=== PATIENT | male | born 1965 | race Caucasian/White ===

== ENCOUNTER 2021-11-03 21:19 | Inpatient (IN) ==
[2021-11-03] MEDS ORDERED: Iopamidol - 370 500 ML MLS IVP ONE (22:01)
[2021-11-03 22:18] LABS: Basophils % 0.3 %; Eosinophils # 0.1 K/mcL (0.0-0.6); Eosinophils % 1.5 %; Hemoglobin 14.3 g/dL (12.9-16.9); Immature Granulocytes % 0.4 % (0-4); Lymphocytes # 1.1 K/mcL (0.6-4.6); Lymphocytes % 15.4 %; Mean Corpuscular HGB Conc 31.8 g/dL (31.6-35.5); Mean Corpuscular Hemoglobin 29.1 pg (28.0-33.3); Mean Corpuscular Volume 91.6 fL (83.0-100.0); Mean Platelet Volume 11.5 fL (9.4-12.4); Monocytes # 1.2 K/mcL (0.0-1.3); Monocytes % 15.8 %; Neutrophils # 4.9 K/mcL (1.6-8.9); Red Blood Count 4.91 M/mcL (4.19-5.50); Red Cell Distribution Width 16.9 % (11.5-14.5); Segmented Neutrophils % 66.6 %; White Blood Count 7.3 K/mcL (4.3-11.1)
[2021-11-03 22:23] LABS: Platelet Count 113 K/mcL (140-400)
[2021-11-03 22:35] LABS: BUN/Creatinine Ratio 14 (6-26); Blood Urea Nitrogen 12 mg/dL (6-20); Calcium 8.9 mg/dL (8.6-10.3); Carbon Dioxide 37 mEq/L (23-29); Chloride 98 mEq/L (98-107); Glucose 96 mg/dL (70-105); Osmolality,Calculated 292 (280-300); Potassium 3.7 mEq/L (3.5-5.1); Sodium 141 mEq/L (136-145); eGFR For African Americans > 60 (> 60); eGFR For Non-African Americans > 60 (> 60)
[2021-11-03 22:48] LABS: Troponin I <= 0.04 ng/mL (0-0.04)
[2021-11-03] MEDS ORDERED: cefTRIAXone 1,000 MG in Water for inj. (sterile) 10 ML IVP ONE (23:25)
[2021-11-03] MEDS ORDERED: Azithromycin 500 MG in 0.9 % Sodium Chloride 250 ML IVPB ONE (23:25)
[2021-11-03] MEDS ORDERED: *HR* Heparin 5,000 UNIT/ML VIAL IVP ONE (23:26)
[2021-11-03] MEDS ORDERED: *HR* Heparin 5,000 UNIT/ML VIAL IVP PRN ×2 (23:26)
[2021-11-03] MEDS ORDERED: Heparin 25,000UNIT/250ML 1/2NS 25,000 UNIT/250 ML IV.SOLN IVC SCH (23:30)
[2021-11-04] MEDS ORDERED: Ondansetron 4 MG/2 ML VIAL IVP PRN ×2 (00:45→01:35)
[2021-11-04] MEDS ORDERED: Naloxone 0.4 MG/ML INJ IVP PRN ×2 (00:45→01:35)
[2021-11-04] MEDS ORDERED: *HR* Heparin 5,000 UNIT/ML VIAL IVP PRN ×2 (01:35)
[2021-11-04] MEDS ORDERED: Heparin 25,000UNIT/250ML 1/2NS 25,000 UNIT/250 ML IV.SOLN IVC SCH (01:35)
[2021-11-04] MEDS: *HR* HYDROcodone/Acet 7.5/325 mg TABLET PO PRN ×3 (02:45→21:17)
[2021-11-04] MEDS: lisinopriL 5 MG TABLET PO SCH (07:40)
[2021-11-04] MEDS: DilTIAZem CD (24hr) 120 MG CAP.ER.24H PO SCH (08:40)
[2021-11-04] MEDS: Furosemide 40 MG TABLET PO SCH (08:40)
[2021-11-04] MEDS ORDERED: Perflutren Lipid Microsphere 1.3 ML in 0.9 % Sodium Chloride 8.7 ML IVP PRN (12:57)
[2021-11-04] MEDS: Apixaban 5 MG TABLET PO SCH ×2 (15:13→21:14)
[2021-11-04] MEDS: *HR* LORazepam 1 MG TABLET PO PRN (21:17)
[2021-11-05] MEDS: *HR* LORazepam 1 MG TABLET PO PRN (00:36)
[2021-11-05 10:15] LABS: Basophils % 0.3 %; Eosinophils # 0.1 K/mcL (0.0-0.6); Eosinophils % 0.8 %; Hematocrit 48.5 % (37.5-50.1); Hemoglobin 14.7 g/dL (12.9-16.9); Immature Granulocytes % 0.5 % (0-4); Lymphocytes % 12.7 %; Mean Corpuscular HGB Conc 30.3 g/dL (31.6-35.5); Mean Corpuscular Volume 95.7 fL (83.0-100.0); Mean Platelet Volume 10.2 fL (9.4-12.4); Monocytes # 1.1 K/mcL (0.0-1.3); Monocytes % 14.1 %; Neutrophils # 5.6 K/mcL (1.6-8.9); Platelet Count 109 K/mcL (140-400); Red Blood Count 5.07 M/mcL (4.19-5.50); Red Cell Distribution Width 16.3 % (11.5-14.5); Segmented Neutrophils % 71.6 %; White Blood Count 7.8 K/mcL (4.3-11.1)
[2021-11-05 11:49] LABS: Alanine Aminotransferase 17 Units/L (7-52); Albumin 3.6 g/dL (3.5-5.7); Albumin/Globulin Ratio 1.3 (1.1-2.2); Alkaline Phosphatase 78 Units/L (34-104); Aspartate Amino Transferase 12 Units/L (13-39); BUN/Creatinine Ratio 13 (6-26); Bilirubin,Total 0.4 mg/dL (0.3-1.0); Blood Urea Nitrogen 10 mg/dL (6-20); Calcium 9.3 mg/dL (8.6-10.3); Carbon Dioxide 39 mEq/L (23-29); Chloride 97 mEq/L (98-107); Globulin 2.8 g/dL (2.4-3.5); Glucose 133 mg/dL (70-105); Osmolality,Calculated 291 (280-300); Potassium 4.4 mEq/L (3.5-5.1); Sodium 140 mEq/L (136-145); Total Protein 6.4 g/dL (6.4-8.9); eGFR For African Americans > 60 (> 60); eGFR For Non-African Americans > 60 (> 60)
[2021-11-05 12:01] LABS: ABG Base Excess 7 mEq/L (-2 to 3); ABG HCO3 44 mEq/L (21-27); ABG Oxygen Saturation 88 % (95-98); ABG PCO2 133 mmHg (35-45); ABG PH 7.13 pH Units (7.32-7.45); ABG PO2 77 mmHg (85-104); ABG TCO2 48 mEq/L (20-26)
[2021-11-05] MEDS: Furosemide 40 MG TABLET PO SCH (12:27)
[2021-11-05] MEDS: DilTIAZem CD (24hr) 120 MG CAP.ER.24H PO SCH (12:27)
[2021-11-05] MEDS: Apixaban 5 MG TABLET PO SCH (12:27)
[2021-11-05] MEDS: lisinopriL 5 MG TABLET PO SCH (12:27)
[2021-11-05 13:24] VITALS: PULSE 77
[2021-11-05 14:09] LABS: ABG Base Excess 8 mEq/L (-2 to 3); ABG HCO3 41 mEq/L (21-27); ABG Oxygen Saturation 94 % (95-98); ABG PCO2 103 mmHg (35-45); ABG PH 7.21 pH Units (7.32-7.45); ABG PO2 91 mmHg (85-104); ABG TCO2 44 mEq/L (20-26)
[2021-11-05 15:28] VITALS: BP 116/78; RESP 15; TEMP 97.5; O2SAT 95
== END 2021-11-05 15:45 | disposition hospice, inpatient (51) | DRG 175 ==
LOC: EMEROOGRE 21:19 → INPGRE 21:19
PROVIDERS: ADMIT Internal Medicine; ATTEND Internal Medicine

== ENCOUNTER 2021-11-05 15:30 | Inpatient (IN) ==
[2021-11-05] MEDS ORDERED: Atropine Sulfate 1% 40 DROP/2 ML BOTTLE SL PRN (16:09)
[2021-11-05] MEDS ORDERED: Morphine Sulfate Oral CONC 10 MG/0.5 ML ORAL.SYG PO PRN (16:09)
[2021-11-05] MEDS ORDERED: Ondansetron 4 MG/2 ML VIAL IVP PRN (16:09)
[2021-11-05] MEDS ORDERED: *HR* LORazepam Oral Conc 2 MG/ML PO PRN (16:09)
[2021-11-05] MEDS ORDERED: *HR* LORazepam 2 MG/ML VIAL IVP PRN (16:09)
[2021-11-05] MEDS ORDERED: Bisacodyl 10 MG RECTAL SUPPOSITORY RC PRN (16:09)
[2021-11-05] MEDS ORDERED: Acetaminophen 650 MG RECTAL SUPP RC PRN (16:09)
[2021-11-05] MEDS ORDERED: Ipratropium/Albuterol Neb 3 ML IH PRN (16:09)
[2021-11-05] MEDS ORDERED: Albuterol 2.5 MG/3 ML NEBULIZER IH PRN (16:09)
[2021-11-05] MEDS ORDERED: Haloperidol Oral Conc 10 MG/5 ML UDC PO PRN (16:09)
[2021-11-05] MEDS ORDERED: Scopolamine Patch 1.5 MG PATCH.TD72 TD SCH (16:15)
[2021-11-05 19:45] VITALS: BP 134/82; PULSE 92; RESP 16; TEMP 98.7; O2SAT 94
[2021-11-05] MEDS: Morphine Sulfate 2 MG/ML SYRINGE IVP PRN (21:01)
[2021-11-06] MEDS: Morphine Sulfate 2 MG/ML SYRINGE IVP PRN (00:01)
== END 2021-11-06 05:47 | disposition expired | DRG 951 ==
LOC: INPGRE 15:52
PROVIDERS: ADMIT Family Medicine; ATTEND Family Medicine